=== PATIENT | male | born 1970 | race Caucasian/White ===

== ENCOUNTER 2025-01-11 13:37 | Outpatient (AMB) | payer OTHER, SELFPAY ==
--- NOTE | 2025-01-11 14:16 | A.PHYSOV ---
Vital Signs 01/11/25 14:19 Height 5 ft 11.5 in Weight 304 lb BMI 41.8 Intake Visit Reasons: F/U after injection 12/16/24 Intake Note: Patient is a 54 year old male here today to follow up after right L4-5,L5-[id number] injection on 12/16/2024. 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 The patient reports significant improvement in pain since right-sided L4-5, L5-S1 facet injection on 12/16/2024 estimating a 90% reduction since the last visit. Previously, the patient was on gabapentin, which provided some relief, but he discontinued it after receiving injection. . Post-injection, the patient reports no return of pain and is able to perform activities such as bending, straightening, and yard work without discomfort. The patient received a long-acting steroid injection in the lumbar spine to decrease inflammation, which typically provides relief for three to six months. The patient is advised to contact the office if pain returns, as repeat injections can be arranged without an office visit. The patient is informed about a secondary procedure, nerve ablation, which can provide longer-term relief by targeting a small nerve innervating the lumbar facet. This procedure is discussed as an option if insurance approves, and it can prevent the nerve from signaling pain for up to two years. The patient is advised to maintain low-impact activities such as walking, biking, swimming, and yoga, and to avoid heavy lifting to prevent exacerbation of the condition. Results MRI lumbar spine 10/07/2024 impression: Multilevel degenerative changes of lumbar spine as detailed above. Crowding of the exiting and traversing nerve roots at multiple levels. [facility] Surgical History H/O hernia repair (Unknown) Social History Alcohol intake: current Alcohol intake frequency: does not drink Patient Tobacco Use Status: Never used Tobacco Use of substances other than those prescribed or required for medical reasons: No Review of Systems Narrative Review of Systems - Musculoskeletal: Reports significant improvement in lumbar pain, denies current pain Physical Exam Exam Exam: Physical Exam Lumbar Spine: Examination of his lumbar spine, there is no visible swelling or deformity. Nontender to palpation lumbar facets. He has less pain with facet loading. Full range of motion. Special Tests: Lhermittes sign was negative Heel Toe walk is normal Left straight leg raise: Negative Right straight leg raise: Negative Special tests Audelia test is negative Ganslen's test is negative SI Joint compression test negative An test negative Piriformis stretch is negative Lower Extremities: Full range of motion bilateral extremities. No edema. Neuro: Sensation: Intact to lower extremities bilaterally Strength L2 (Psoas): 5/5 on the left and 5/5 on the right. L3 (Quads): 5/5 on the left and 5/5 on the right. L4 (Ant tibialis): 5/5 on the left and 5/5 on the right. L5 (EHL) 5/5 on the left and 5/5 on the right. S1 (Gastroc): 5/5 on the left and 5/5 on the right. DTR L4: (Patellar) Left 2 Right 2 S1: (Achilles) Left 2 Right 2 Babinski Downgoing No pathologic clonus. No involuntary movement. Vital Signs: BMI result Body Mass Index 41.8 Assessment & Plan Assessment & Plan (1) Vertebrogenic low back pain: Code(s): M54.51 - Vertebrogenic low back pain Category: Medical Plan Pain Management - Affect: Improved mood due to significant pain relief - Analgesia: Discontinued gabapentin, significant relief post-injection - Adverse Effects: None reported - Activities of Daily Living: Able to perform activities like yard work without discomfort - Aberrant Drug Related Behaviors: None reported Plan Patient was informed and verbally consented to the use of an ambient scribe for clinic note documentation during this visit. 1. Chronic Low Back Pain The patient has experienced significant relief from chronic low back pain following a long-acting steroid injection in the lumbar spine. The injection is expected to provide relief for three to six months, and the patient is advised to contact the office if pain returns for potential repeat injections. A secondary option of nerve ablation was discussed, which can provide longer-term relief by targeting a small nerve innervating the lumbar facet, with the potential for pain relief lasting up to two years. The patient is encouraged to engage in low-impact activities and avoid heavy lifting to prevent exacerbation of the condition. Discussion Notes I discussed with the patient the use of a long-acting steroid injection for managing chronic low back pain, which has provided significant relief. We reviewed the potential for repeat injections if pain returns and the option of nerve ablation for longer-term relief, which can last up to two years. I advised the patient to maintain low-impact activities and avoid heavy lifting to prevent exacerbation of the condition. Patient Instructions - Continue low-impact activities such as walking, biking, swimming, and yoga. - Avoid heavy lifting to prevent exacerbation of back pain. - Contact the office if pain returns for potential repeat injections. - Consider nerve ablation if longer-term relief is desired and approved by insurance. Coding Level of Care Code Tele Est Pt Level 3 (96542) Diagnoses Vertebrogenic low back pain M54.51
[2025-01-11 14:19] VITALS: BMI 41.8
== END 2025-01-11 14:38 | disposition home or self-care (01) ==
LOC: HO.HPHYS 13:37
PROVIDERS: Visit Provider Physician Assistant
DX: M54.51 Vertebrogenic low back pain (principal)
CPT/HCPCS: 99213